=== PATIENT | male | born 1970 | race Caucasian/White ===

== ENCOUNTER 2024-03-02 12:25 | Emergency (ER) | payer OTHER ==
[~2024-03-02] VITALS: Ht 167.6 cm; Wt 103.4 kg
[~2024-03-02 12:25] MED LIST: NO HOME MEDS
[2024-03-02 12:53] VITALS: TEMP 98.5
[2024-03-02 13:17] LABS: BILIRUBIN,URINE NEGATIVE (Neg); CLARITY,URINE CLEAR (Clear); COLOR,URINE YELLOW (Yellow); GLUCOSE, URINE NEGATIVE (Neg); KETONES,URINE NEGATIVE (Neg); LEUKOCYTE ESTERASE ,URINE NEGATIVE (Neg); NITRITES, URINE NEGATIVE (Neg); OCCULT BLOOD,URINE SMALL (Neg); PROTEIN,URINE NEGATIVE (Neg); UROBILINOGEN,URINE 0.2 E.U/dL (0.2-1.0)
[2024-03-02 13:28] LABS: UA COLLECTION TYPE CLN CATCH MIDSTREAM
[2024-03-02 13:29] LABS: BACTERIA,URINE NONE SEEN /HPF (Neg); MUCUS STRANDS NONE SEEN /LPF (Neg); RBC,URINE 0-2 /HPF (0-2); SQUAMOUS EPITHELIAL CELL,UR NONE SEEN /LPF (FEW); WBC,URINE NONE SEEN /HPF (0-4)
[2024-03-02 13:47] LABS: BASOPHILS % (AUTO) 0.5 % (0-1); EOSINOPHILS # (AUTO) 0.1 X10'3 (0-0.9); EOSINOPHILS % (AUTO) 2.3 % (0-6); HEMATOCRIT 45.3 % (42.0-52.0); HEMOGLOBIN 15.3 g/dl (14.0-17.9); LYMPHOCYTES # (AUTO) 1.3 X10'3 (1.1-4.8); LYMPHOCYTES % (AUTO) 21.3 % (21-51); MEAN CORPUSCULAR HEMOGLOBIN 30.7 PG (27.0-31.0); MEAN CORPUSCULAR HGB CONC 33.7 g/dL (33.0-36.5); MEAN CORPUSCULAR VOLUME 91.1 FL (78-98); MEAN PLATELET VOLUME 9.2 FL (7.4-10.4); MONOCYTES # (AUTO) 0.3 X10'3 (0-0.9); MONOCYTES % (AUTO) 5.8 % (2-12); NEUTROPHILS # (AUTO) 4.1 X10'3 (1.8-7.7); NEUTROPHILS % (AUTO) 70.1 % (42-75); PLATELET COUNT 214 X10'3 (140-440); RED BLOOD COUNT 4.98 X10'6 (4.70-6.10); RED CELL DISTRIBUTION WIDTH 13.1 % (11.5-14.5); WHITE BLOOD COUNT 5.9 X10'3 (4.5-11.0)
[2024-03-02 13:56] LABS: ALANINE AMINOTRANSFERASE 64 U/L (12-78); ALBUMIN 4.5 G/DL (3.4-5.0); ALBUMIN/GLOBULIN RATIO 1.5 (1.1-1.5); ALKALINE PHOSPHATASE 56 IU/L (46-116); ANION GAP 11 (8-16); ASPARTATE AMINO TRANSFERASE 22 U/L (10-37); BILIRUBIN,TOTAL 0.5 MG/DL (0.1-1.0); BLOOD UREA NITROGEN 13 MG/DL (7-18); BUN/CREATININE RATIO 12.4 (10.0-20.0); CHLORIDE 105 MMOL/L (99-107); CREATININE 1.05 MG/DL (0.60-1.10); GLUCOSE 103 MG/DL (70-104); LIPASE 23 U/L (16-77); POTASSIUM 4.1 MMOL/L (3.5-5.1); SODIUM 144 MMOL/L (135-145); TOTAL CARBON DIOXIDE 27.9 MMOL/L (24-32); TOTAL PROTEIN 7.6 G/DL (6.4-8.2); eCRCL 72 ML/MIN; eGFR 73 ML/MIN
[2024-03-02 15:00] VITALS: BP 122/70; PULSE 66; RESP 16; O2SAT 96
[2024-03-02] MEDS ORDERED: HYDR-3965 PO (15:29)
[2024-03-02] MEDS ORDERED: FLO0.4C PO (15:29)
[2024-03-02] MEDS ORDERED: ONDA-245 PO (15:29)
== END 2024-03-02 15:42 | disposition home or self-care (01) ==
LOC: ER 12:26
DX: N20.0 Calculus of kidney (principal); R11.0 Nausea
CPT/HCPCS: 36415; 74176; 80053; 81001; 83690; 85025; 99284; J7030